=== PATIENT | male | born 1985 | race African-American/Black ===

== ENCOUNTER → 2017-10-31 | Outpatient (CLI) | payer MEDICARE, OTHER | END | disposition home or self-care (01) | LOC: RADPV 09:15 | PROVIDERS: ATTEND Legal Medicine | DX: M54.5 Low back pain (principal); M79.641 Pain in right hand; M21.831 Other specified acquired deformities of right forearm; J45.909 Unspecified asthma, uncomplicated; Z87.81 Personal history of (healed) traumatic fracture; F17.210 Nicotine dependence, cigarettes, uncomplicated | CPT/HCPCS: 72100 ==

== ENCOUNTER 2025-02-08 08:58 | Emergency (ER) | payer MEDICARE, OTHER ==
[~2025-02-08] VITALS: Ht 180.3 cm; Wt 84.1 kg
[2025-02-08 09:09] VITALS: BP 119/89; PULSE 78; RESP 18; TEMP 97.5; O2SAT 100
[2025-02-08] MEDS ORDERED: FLUORESCEIN SODIUM 1 MG STRIP ONE (10:28)
[2025-02-08] MEDS ORDERED: PROPARACAINE HCL 0.5% 15 ML OPHTHALMIC SOLUTION ONE (10:28)
== END 2025-02-08 11:20 | disposition home or self-care (01) ==
LOC: EMS 09:00
DX: H57.12 Ocular pain, left eye (principal); H20.9 Unspecified iridocyclitis; G89.29 Other chronic pain; F17.210 Nicotine dependence, cigarettes, uncomplicated; J45.909 Unspecified asthma, uncomplicated; F32.A Depression, unspecified; Z98.890 Other specified postprocedural states
CPT/HCPCS: 99283